=== PATIENT | female | born 1990 | race Caucasian/White ===

== ENCOUNTER 2016-05-23 21:32 | Emergency (ER) | payer BC ==
[~2016-05-23] VITALS: Ht 165.1 cm; Wt 95.5 kg
[~2016-05-23 21:32] MED LIST: AMOXICILLIN500 MG PO; ASPIR-LOW81 MG PO; CARVEDILOL3.125 MG PO; COLCHICINE0.6 M1 PO; CYCLOBENZAPRINE10 MG PO; IMPLANON68 MG SQ; LO LOESTRIN FE1 EACH PO; PRILOSEC10 MG PO; PROAIR HFA8.5 GM IH
[2016-05-23 22:14] LABS: EOSINOPHIL (%) 0.3 % (0-5); HEMATOCRIT 38.2 % (36.0-46.0); IMMATURE GRANULOCYTE (%) 0.2 % (0.0-0.7); IMMATURE GRANULOCYTE COUNT 0.2 K/uL; LYMPHOCYTE COUNT 2.2 K/uL (1.0-2.8); MCH 30.9 PG (29.0-34.0); MCHC 34.8 G/DL (30.0-36.0); MCV 88.6 FL (83-99); MONOCYTE (%) 8.4 % (3-12); MONOCYTE COUNT 0.9 K/uL (0-0.8); NEUTROPHIL COUNT 7.3 K/uL (1.8-6.4); PLATELET COUNT 234 K/uL (156-360); RBC DIS.WIDTH-CV 12.5 % (11.8-14.6); RBC DIS.WIDTH-SD 39.7 % (39-53); RED BLOOD COUNT 4.31 M/uL (3.80-5.20); WHITE BLOOD COUNT 10.5 K/uL (4.1-10.2)
[2016-05-23 22:32] LABS: ANION GAP 8 MEQ/L (2-14); CHLORIDE 107 mEq/L (99-109); GLUCOSE 90 mg/dL (70-99); POTASSIUM 4.1 mEq/L (3.7-5.4); SODIUM 139 mEq/L (136-147)
[2016-05-23 22:35] LABS: GFR ESTIMATE (CALCULATED) > 59 mL/min/
[2016-05-23 22:36] LABS: UREA NITROGEN (BUN) 13 mg/dL (9-23)
[2016-05-23 22:39] LABS: TROP-I INTERPRETATION NEGATIVE; TROPONIN-I < 0.01 ng/mL (0.0-0.30)
[2016-05-23 22:44] LABS: D-DIMER ELISA < 0.15 mg/L FEU (< 0.57)
[2016-05-23 22:45] LABS: QUANTITATIVE HCG < 4.0 MIU/ML
[2016-05-23 23:51] VITALS: BP 127/86
== END 2016-05-23 23:53 | disposition home or self-care (01) ==
LOC: EME → EDBD 21:32 → EME 23:53
PROVIDERS: Personal Emergency Response Attendant
DX: R00.2 Palpitations (principal); R07.9 Chest pain, unspecified; R00.0 Tachycardia, unspecified; F15.10 Other stimulant abuse, uncomplicated; F12.10 Cannabis abuse, uncomplicated; F17.200 Nicotine dependence, unspecified, uncomplicated
CPT/HCPCS: 71020; 80048; 84443; 84484; 84702; 85025; 85379; 93005; 99281; 99285; J7030